=== PATIENT | female | born 1990 | race Two or more races ===

== ENCOUNTER 2018-10-06 14:26 | Inpatient (IN) | payer OTHER ==
[~2018-10-06] VITALS: Ht 162.6 cm; Wt 66.7 kg
--- NOTE | 2018-10-06 14:41 | NUR ---
SE RECIBE PTE AMBULANDO ALERTA Y ORIENTADA X3 QUIEN ES REFERIDA POR GINECOLOGA DAVIS HUNTER POR EMBARAZO ECTOPICO. SE UBICA A PTE EN AREA DE OBSERVACION PARA SER EVALUADA POR MEDICO.
[2018-10-07] MEDS ORDERED: PERCOCET 5-3251 EACH PO (17:27)
== END 2018-10-07 17:45 | disposition home or self-care (01) | DRG 819 ==
LOC: ER 14:26 → EDBD 15:44 → ER 15:44 → OB/GYN 15:57
PROVIDERS: ADMIT Specialist
PROC: 0UT54ZZ Resection of Right Fallopian Tube, Percutaneous Endoscopic Approach (ICD-10-PCS; principal; 2018-10-06)
PROC: 10T24ZZ Resection of Products of Conception, Ectopic, Percutaneous Endoscopic Approach (ICD-10-PCS; 2018-10-06)
PROC: 0U914ZZ Drainage of Left Ovary, Percutaneous Endoscopic Approach (ICD-10-PCS; 2018-10-06)
PROC: BU4CZZZ Ultrasonography of Uterus and Ovaries (ICD-10-PCS; 2018-10-06)
DX: O00.201 Right ovarian pregnancy without intrauterine pregnancy (principal)